=== PATIENT | male | born 1965 | race Caucasian/White ===

== ENCOUNTER 2023-12-15 23:56 | Emergency (ER) | payer BC, OTHER ==
--- OUTSIDE RECORDS SUMMARY | 2023-12-15 23:58 | XMS REPORT | Clinical Summary ---
Author Name Unknown Organization [facility] Address [address] [place] [address] Care Team Providers Care Actuarial Mathematician Name Role Phone Raheel Oglesby MD Primary Care Provider [phone] Jayme Mahan MD Unavailable Bjorn Trimble DDS Unavailable [phone] Karol Holliday DDS Unavailable [phone] Doc Goodman MD Unavailable [phone] Kalani Ayoub MD Unavailable [phone] Kamron King MD Unavailable Dotty Michael MD Unavailable Azra Jules MD Unavailable Allergies No known active allergies Medications Medication Sig Dispensed Refills Start Date End Date Status fluoride, sodium, (Denta 5000 Plus) 1.1 % dental creamIndications:Tons il carcinoma [place] teeth with cream and spit out as directed. (Do not eat, drink or rinse for 30 minutes). 51 g 12 12/31/2019 Active carBAMazepine (Tegretol XR) 100 mg 12 hr tabletIndications:Tri geminal neuralgia Take 1 tablet (100 mg) by mouth See Admin Instructions. 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 Cancer Staging:Clinical:Stage I(cT1, cN1, cM0, p16+) - Signed by Ingrid Mcguire PA on 02/10/2020 Pathologic:Stage Unknown(pT1, pNX, cM0, p16+) - Signed by Ingrid Mcguire PA on 02/10/2020 Encounters Date Type Department Care Team Description 08/27/2023 9:00 AM CDT - 08/27/2023 11:59 PM CDT Hospital Encounter [facility] [address] [place] [address] Main [facility], 4th [place] [address] Azra Jules MD Trigeminal neuralgia (Primary Dx); Primary squamous cell carcinoma of palatine tonsil Discharge Disposition: Home 08/27/2023 7:44 AM CDT - 08/27/2023 8:59 AM CDT Hospital Encounter [facility] [address] [place] [address] Aron Willams MD Primary squamous cell carcinoma of palatine tonsil Discharge Disposition: Home 08/27/2023 Documentation [facility] - Surgical Oncology [address] [place] [address], 10th Floor, [place] [address] Wallace Lowin K 08/27/2023 Travel 08/13/2023 Documentation [facility] [address] [place] [address], 10th Floor, [place] [address] Collier, Lamine K 07/19/2023 Documentation [facility] - Surgical Oncology [address] [place] [address], 10th Floor, [place] [address] Collier, Lamine K 05/01/2023 Orders Only [facility] [address] [place] [address] Felicity Goddard Primary squamous cell carcinoma of palatine tonsil (Primary Dx) 04/30/2023 8:38 AM COOK SHORT ORDER - 04/30/2023 11:59 PM COOK SHORT ORDER Hospital Encounter [facility] - Surgical Oncology [address] [place] [address], 10th Floor, [place] [address] Raheel Oglesby MD Primary squamous cell carcinoma of palatine tonsil Discharge Disposition: Home 04/30/2023 6:30 AM COOK SHORT ORDER Ancillary Procedure [facility] Out[facility] [address] [id number] Asia Barker PA Primary squamous cell carcinoma of palatine tonsil 04/30/2023 6:03 AM COOK SHORT ORDER - 04/30/2023 8:37 AM COOK SHORT ORDER Hospital Encounter [facility] [address] [place] [address], [place] [place] [address] Asia Barker PA Primary squamous cell carcinoma of palatine tonsil Discharge Disposition: Home 04/30/2023 Orders Only Neuroradiology [address] [place], [place] [id number] Yajaira Scherer PA 04/30/2023 Travel after 12/15/2022 Immunizations Name Administration Dates Next Due Pfizer SARS-CoV-2 Vaccination (Purple Cap) 10/04,09/13/2020 Surgical History Surgery Date Site/Laterality Comments HERNIA REPAIR 02/26/1993 - 02/25/1994 LIP RECONSTRUCTION 1967 - 02/26/1968 Right [place] OTOLARYNGOLOGIC EXAM UNDER GENERAL ANESTHESIA 08/21/2019 Mouth/Bilateral Procedure: OTOLARYNGOLOGIC EXAM UNDER ANESTHESIA; Surgeon: Raheel Oglesby MD; Location: MAIN OR; Service: HN - HEAD & NECK SURGERY [place] LARYNGOSCOPY DIRECT OPERATIVE W/BIOPSY 08/21/2019 Mouth/Bilateral Procedure: DIRECT OPERATIVE LARYNGOSCOPY WITH BIOPSY; Surgeon: Raheel Oglesby MD; Location: MAIN OR; Service: HN - HEAD & NECK SURGERY [place] TONSILLECTOMY PRIMARY/SECONDARY AGE 14/> 08/21/2019 Mouth/Bilateral Procedure: PRIMARY TONSILLECTOMY; Surgeon: Raheel Oglesby MD; Location: MAIN OR; Service: HN - HEAD & NECK SURGERY [place] UNLISTED PROCEDURE DENTOALVEOLAR STRUCTURES 08/21/2019 Mouth/Bilateral Procedure: DENTAL EXTRACTION(S); Surgeon: Bjorn Trimble DDS; Location: MAIN OR; Service: ORAL ONCOLOGY & MAXILLOFACIAL PROSTHODONTICS [place] ALVEOLOPLASTY EACH QUADRANT SPECIFY 08/21/2019 Mouth/Bilateral Procedure: ALVEOLOPLASTY; Surgeon: Bjorn Trimble DDS; Location: MAIN OR; Service: ORAL ONCOLOGY & MAXILLOFACIAL PROSTHODONTICS [place] CERVICAL LYMPHADEC MODIFIED RADICAL NECK DSJ 02/03/2020 Left Procedure: LEVEL II-IV NECK DISSECTION; Surgeon: Raheel Oglesby MD; Location: MAIN OR; Service: HN - HEAD & NECK SURGERY [place] EXCISION TUMOR SOFT TIS BACK/FLANK SUBQ 3 CM/> 07/27/2022 Left Procedure: EXCISION OF TUMOR OF SOFT TISSUE OF BACK OR FLANK; Surgeon: Dotty Michael MD; Location: MAIN OR; Service: SURG ONC - GENERAL Medical History Medical History Date Comments 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 Family History Medical History Relation Name Comments Leukemia Maternal Uncle Relation Name Status Comments Father Maternal Uncle Social History Tobacco Use Types Packs/Day Years Used Date Smoking Tobacco: Former Cigarettes 1 20 0 02/26/1999 - 02/26/2019 Smokeless Tobacco: Former Quit: 02/26/1999 Tobacco Cessation:Ready to Q uit: Yes; Counseling Given: Yes Alcohol Use Standard Drinks/Week Comments Not Currently 0 (1 standard drink = 0.6 oz pur e alcohol) stopped drinking 15 yrs ago Sex and Gender Information Value Date Recorded Sex Assigned at Male 08/05/2019 2:32 PM CDT Gender Identity Male 08/05/2019 2:32 PM CDT Sexual Orientation Straight 08/05/2019 2: 32 PM CDT Job Start Date Occupation Industry Not on file Not on file Not on file Obstetrics History Last Filed Vital Signs Vital Sign Reading Time Taken Comments Blood Pressure 151/90 08/27/2023 9:46 AM CDT Pulse 59 08/27/2023 9:46 AM CDT Temperature 36.6 C (97.8 F) 08/27/2023 9:46 AM CD T Respiratory Rate 18 08/27/2023 9:46 AM CDT Oxygen Saturation 100% 08/27/2023 9:46 AM CDT Inhaled Oxygen Concentration - - Weight 88.5 kg (195 lb) 08/27/2023 9:46 AM CDT Height - - Body Mass Index 27.3 05/01/2022 10:41 AM COOK SHORT ORDER Plan of Treatment Upcoming Encounters Date Type Department Care Team (Late st Contact Info) Description 04/30/2024 7:00 AM COOK SHORT ORDER Appointment Diagnostic [facility] Center [address] [place] [phone] Raheel Oglesby MD [address] [place] [phone] [email or web address] 04/30/2024 7:30 AM COOK SHORT ORDER Ancillary Procedure Diagnostic Center [address] [place] [address], 2nd [place] [address] Raheel Oglesby MD [address] [place] [phone] [email or web address] 04/30/2024 7:45 AM COOK SHORT ORDER Ancillary Procedure CT Imaging [address] [place] [address], 7th [place] [address] Raheel Oglesby MD [address] [place] [phone] [email or web address] 04/30/2024 10:00 AM COOK SHORT ORDER Consult Cancer Prevention Center - Survivorship, Head/Neck [address] [place] [address], [address]th [place] [address] Raheel Oglesby MD [address] [place] [phone] [email or web address] Health Maintenance Due Date Last Done Comments COVID-19 Vaccine (2023-2 5 season) 2023 10/04/2020, 09/13/2020 Influenza Vaccine (#1) 2023 Pneumococcal Vaccine: Pediatrics (0 to 5 Years) and At-Risk Patients (6 to 64 Years) Aged Out No longer eligible b ased on patient's age to complete this topic Procedures Procedure Name Priority Date/Time Associated Diagnosis Comments MRI HEAD/NECK SIMULATION W WO CONTRAST (RO) Routine 08/27/2023 8:53 AM CDT Primary squamous cell carcinoma of palatine tonsil POC CREATININE Routine 08/27/2023 8:[address] SOFT TISSUE NECK W CONTRAST Routine 04/30/2023 8:27 AM COOK SHORT ORDER Primary squamous cell carcinoma of palatine tonsil FREE THYROXINE Routine 04/30/2023 6:26 AM COOK SHORT ORDER Primary squamous cell carcinoma of palatine tonsil THYROID STIMULATING HORMONE Routine 04/30/2023 6:26 AM COOK SHORT ORDER Primary squamous cell carcinoma of palatine tonsil CREATININE Routine 04/30/2023 6:26 AM COOK SHORT ORDER Primary squamous cell carcinoma of palatine tonsil BLOOD UREA NITROGEN Routine 04/30/2023 6 :26 AM COOK SHORT ORDER Primary squamous cell carcinoma of palatine tonsil after 12/15/2022 Results * MRI Head/Neck Simulation with and without Contrast (08/27/2023 8:53 AM CDT) Narrative Systemgenerated, Documentation - 08/27/2023 8:53 AM CDT This procedure requires no interpretation from the radiologist. Aron Willams MD IMG RO MRI [facility] * POC Creatinine (08/27/2023 8:04 AM CDT) POC Creatinine 1.1 0.6 - 1.3 mg/dL 08/27/2023 8:07 AM CDT [facility] Comment:Medications, especia lly hydroxyurea or supplements, such as ascorbate, can interfere with test results causing a falsely and significantly higher result than expected. If a problem is suspected with a patient's result, a sample should be sent to the laboratory for confirmatory testing. POC eGFR 79 >=60 mL/min/1.7 3 sq. m 08/27/2023 8:07 AM CDT [facility] Comment: The eGFRcr is calculated with the 2020 CKD-EPI creatinine equation using creatinine, patient's age, and sex for adults 18 years of age and older. Other factors, especially muscle mass, may affect accuracy and need to be considered. According to the Kidney Disease: Improving Global Outcomes (KDIGO) CKD Work Group 2012 Clinical Practice Guideline, chronic kidney disease (CKD) is defined as the abnormalities of kidney structure or function, present for more than 3 months, with implications for health. CKD should be classified by cause, GFR category, and albuminuria category. KDIGO guidelines provide the following GFR categories. Stage / Description / GFR mL/min/1.73 m2: G1* / Normal or high / >= 90 G2* / Mildly decreased / 60-89 G3a / Mildly to moderately decreased / 45-59 G3b / Moderately to severely decreased / 30-44 G4 / Severely decreased / 15-29 G5 / Kidney failure / <15 *In the absence of evidence of kidney damage, neither G1 nor G2 fulfill criteria for CKD. Blood 08/27/2023 8:04 AM CDT 08/27/2023 8:07 AM CDT Narrative [facility] - 08/27/2023 8:07 AM CDT Method description: The i-STAT is an analyzer used for in vitro quantification of various analytes in whole blood. The device uses a single disposable cartridge which contains microfabricated sensors, a calibration solution, fluidics system, and a waste chamber. Each test cartridge contains chemically sensitive biosensors on a silicon chip that are configured to perform specific tests. The microfabricated sensors measure analyte concentration by an electrochemical assay. Aron Willams MD POCT ORDERABLES - Lucero [facility] [address] [place], [place] [address], [place] * CT Soft Tissue Neck with Contrast (04/30/2023 8:27 AM COOK SHORT ORDER) Anatomical Region Laterality Modality Neck Computed Tomogra phy 04/30/2023 8:43 AM COOK SHORT ORDER Impressions 04/30/2023 8:49 AM COOK SHORT ORDER No local or michael recurrence. NIRADS SCORE: 1. Primary: NIRADS 1: Expected post-treatment changes without evidence of recurrence, routine surveillance 2. Nodes: NIRADS 1: No evidence of recurrence; routine surveillance FOOTNOTE: NI-RADS (Neck Imaging Reporting & Data System) is a standardized reporting system for follow-up of treated head and neck cancers. For more information: [email or web address].acr.org/-/[email or web address]-[email or web address]-Surveillance-Lege [email or web address] t ACTIONABLE ITEMS/RECOMMENDATIONS*: None. Narrative 04/30/2023 8:49 AM COOK SHORT ORDER FULL RESULT: Examination: CT SOFT TISSUE NECK W CONTRAST on 04/30/2023 8:27 AM. 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 TECHNIQUE: CT neck with IV contrast was performed. FINDINGS: Primary Site: No new worrisome enhancement about the oropharynx is identified Post-treatment changes: Expected post treatment changes are noted. There is no evidence of osteoradionecrosis. Lymph Nodes: No cervical adenopathy Distant Sites: No metastasis is seen in the visualized brain. No bony metastasis is seen. No metastasis is seen in the lung apices. Other: Small periapical lucency seen surrounding the left maxillary 1st molar Procedure Note Heaven Ray MD - 04/30/2023 FULL RESULT: Examination: CT SOFT TISSUE NECK W CONTRAST on 04/30/2023 8:27 AM. CLINICAL HISTORY: Squamous cell carcinoma of the left tonsil status postradiation and left neck dissection INDICATION: Cancer surveillance, SCC oropharynx s/p XRT COMPARISON: CT 09/27/2022. TECHNIQUE: CT neck with IV contrast was performed. FINDINGS: Primary Site: No new worrisome enhancement about the oropharynx is identified Post-treatment changes: Expected post treatment changes are noted. There is no evidence of osteoradionecrosis. Lymph Nodes: No cervical adenopathy Distant Sites: No metastasis is seen in the visualized brain. No bony metastasis is seen. No metastasis is seen in the lung apices. Other: Small periapical lucency seen surrounding the left maxillary 1stmolar IMPRESSION: No local or michael recurrence. NIRADS SCORE: 1. Primary: NIRADS 1: Expected post-treatment changes without evidence ofrecurrence, routine surveillance 2. Nodes: NIRADS 1: No evidence of recurrence; routine surveillance FOOTNOTE: NI-RADS (Neck Imaging Reporting & Data System) is a standardized reportingsystem for follow-up of treated head and neck cancers. For more information:[email or web address]://www.acr.org/-/media/[email or web address]/Files/RADS/NI-RADS/GXTQ-vs-PQJ-Surve illan ce-Legend.txt ACTIONABLE ITEMS/RECOMMENDATIONS*: None. Asia SIMS IMG CT ORDERABLES * BUN (04/30/2023 6:26 AM COOK SHORT ORDER) BUN 18 6 - 23 mg/dL 04/30/2023 7:42 AM COOK SHORT ORDER [facility] Blood Venipuncture / Unknown 04/30/2023 6:26 AM COOK SHORT ORDER 04/30/2023 6:32 AM COOK SHORT ORDER Asia SIMS LAB BLOOD ORDERABLES [facility] Unless otherwise noted, all lab tests performed by: Division of Pathology and Laboratory Medicine [address] [place] [id number] * TSH (04/30/2023 6:26 AM COOK SHORT ORDER) Thyroid Stimulating Hormone 1.05 0.27 - 4.20 mcunit/mL 04/30/2023 7:42 AM COOK SHORT ORDER [facility] Blood Venipuncture / Unknown 04/30/2023 6:26 AM COOK SHORT ORDER 04/30/2023 6:32 AM COOK SHORT ORDER Asia M Lucero SIMS LAB BLOOD ORDERABLES Performing Organization Address City/[facility]/ZIP Co de Phone Number [facility] Unless otherwise noted, all lab tests performed by: Division of Pathology and Laboratory Medicine [address] [place] [phone] * (ABNORMAL) Free T4 (04/30/2023 6:26 AM COOK SHORT ORDER) T4 (Thyroxine) Free 0.91(L) 0.93 - 1.70 ng/dL 04/30/2023 7:42 AM COOK SHORT ORDER [facility] Blood Venipuncture / Unknown 04/30/2023 6:26 AM COOK SHORT ORDER 04/30/2023 6:32 AM COOK SHORT ORDER Asia M Lucero SIMS LAB BLOOD ORDERABLES Performing Organization Address [facility] de Phone Number [facility] Unless otherwise noted, all lab tests performed by: Division of Pathology and Laboratory Medicine [address] [place] [phone] * (ABNORMAL) Creatinine (04/30/2023 6:26 AM COOK SHORT ORDER) Creatinine 1.22(H) 0.67 - 1.17 mg/dL 04/30/2023 7:42 AM COOK SHORT ORDER [facility] eGFR 70 >=60 mL/min/1. 73 sq. m 04/30/2023 7:42 AM [facility] Comment: The eGFRcr is calculated with the 2020 CKD-EPI creatinine equation using creatinine, patient's age, and sex for adults 18 years of age and older. Other factors, especially muscle mass, may affect accuracy and need to be considered. According to the Kidney Disease: Improving Global Outcomes (KDIGO) CKD Work Group 2012 Clinical Practice Guideline, chronic kidney disease (CKD) is defined as the abnormalities of kidney structure or function, present for more than 3 months, with implications for health. CKD should be classified by cause, GFR category, and albuminuria category. KDIGO guidelines provide the following GFR categories. Stage / Description / GFR mL/min/1.73 m2: G1* / Normal or high / >= 90 G2* / Mildly decreased / 60-89 G3a / Mildly to moderately decreased / 45-59 G3b / Moderately to severely decreased / 30-44 G4 / Severely decreased / 15-29 G5 / Kidney failure / <15 *In the absence of evidence of kidney damage, neither G1 nor G2 fulfill criteria for CKD. Blood Venipuncture / Unknown 04/30/2023 6:26 AM COOK SHORT ORDER 04/30/2023 6:32 AM COOK SHORT ORDER Asia SIMS LAB BLOOD ORDERABLES [facility] Unless otherwise noted, all lab tests performed by: Division of Pathology and Laboratory Medicine [address] [place] [address] after 12/15/2022 Advance Directives * Full Code (Latest Code Status on File) Date Activated Date Inactivated Comments 07/27/2022 4:49 PM 07/27/2022 7:56 PM * Full Code Date Activated Date Inactivated Comments 02/03/2020 1:34 PM 02/04/2020 12:39 PM Care Teams Actuarial Mathematician Relationship Specialty Start Date End Date Raheel Oglesby MD [address] [place] [phone] [email or web address] PCP - General Head and Neck Surgery 08/11/19 Jayme Mahan MD [address] [place] [phone] [email or web address] Consulting Physician Radiation Oncology 10/06/19 Bjorn Trimble DDS [address] [place] [phone] [email or web address] Consulting Physician Dental Oncology 08/13/19 Karol Holliday DDS [address] [place] [phone] [email or web address] Consulting Physician Dental Oncology 09/15/19 Doc Goodman MD [address] [place] [phone] [email or web address] [email or web address] Physician Head and Neck Surgery 05/01/22 Kalani Ayoub MD [address] [place] [phone] [email or web address] Consulting Physician Thoracic Medicine 08/13/19 Kamron King MD [address] [place] [phone] [email or web address] Consulting Physician Integrative Medicine 05/03/22 Dotty Michael MD [address] [place] [phone] [email or web address] Consulting Physician Surgical Oncology 06/16/22 Azra Jules MD [address] [place] [address] [email or web address] Consulting Physician Pain Management 08/27/23
[2023-12-16] MEDS ORDERED: LIDOCAINE 1% 20 ML MDV ONE (00:48)
[2023-12-16] MEDS ORDERED: TDAP (DIPHTH,PERTUSS(ACELL),TET VAC) 0.5 ML VIAL IMVAC ONE (00:48)
--- NOTE | 2023-12-16 01:32 | EDPHYS ---
Physician Documentation [facility] Name: Sandoval Brunner Age: 58 yrs Sex: Male : 1965 Arrival Date: 12/15/2023 Time: 23:56 Bed 13 Private MD: ED Physician Amanuel Mark HPI: 12/15 00:01 This 58 yrs old Male presents to ER via Unassigned with complaints of sp4 Laceration To Arm. 21:56 58-year-old male presents with complaint of acute laceration to the skin of the left sp4 elbow. Patient states he was working with washing machine when metal lacerated his skin. . Historical: - Allergies: 00:04 No Known Allergies; vc1 - PMHx: 00:04 squamous cell carcinoma; vc1 - PSHx: 00:04 None; vc1 - Immunization history:: Last tetanus immunization: > 10 years ago. - Infectious Disease History:: Denies. - Social history:: Smoking status: Reported history of juuling and/or vaping. - Family history:: not pertinent. ROS: 21:56 Constitutional: Negative for fever, chills, and weight loss, positive left elbow sp4 laceration 21:56 All other systems are negative, Exam: 21:56 Constitutional: This is a well developed, well nourished patient who is awake, alert, sp4 and in no acute distress. Head/Face: Normocephalic, atraumatic. Eyes: Pupils equal round and reactive to light, extra-ocular motions intact. Lids and lashes normal. Conjunctiva and sclera are not injected. Cornea within normal limits. Periorbital areas with no swelling, redness, or edema. ENT: Nares patent. No nasal discharge, no septal abnormalities noted. Tympanic membranes are normal and external auditory canals are clear. Oropharynx with no redness, swelling, or masses, exudates, or evidence of obstruction, uvula midline. Mucous membranes moist. Neck: Trachea midline, no thyromegaly or masses palpated, and no cervical lymphadenopathy. Supple, full range of motion without nuchal rigidity, or vertebral point tenderness. Chest/axilla: Normal chest wall appearance and motion. Nontender with no deformity. No lesions are appreciated. Cardiovascular: Regular rate and rhythm with a normal S1 and S2. No gallops, murmurs, or rubs. Normal PMI, no JVD. No pulse deficits. Respiratory: Lungs have equal breath sounds bilaterally, clear to auscultation and percussion. No rales, rhonchi or wheezes noted. No increased work of breathing, no retractions or nasal flaring. Abdomen/GI: Soft, with normal bowel sounds. No distension or tympany. No guarding or rebound. No evidence of tenderness throughout. Back: No spinal tenderness. No costovertebral tenderness. Skin: Warm, dry with normal turgor. Normal color with no rashes, no lesions, and no evidence of cellulitis. Positive skin of the left elbow laceration just superior to olecranon process. Laceration and avulsed some fascia MS/ Extremity: Pulses equal, no cyanosis. Neurovascular intact. Full, normal range of motion. Positive for laceration posterior left elbow skin just above olecranon process transverse orientation Neuro: Awake and alert, GCS 15, oriented to person, place, time, and situation. Cranial nerves II-XII grossly intact. Motor strength 5/5 in all extremities. Sensory grossly intact. Psych: Awake, alert, with orientation to person, place and time. Behavior, mood, and affect are within normal limits Vital Signs: 00:01 Weight 88.45 kg; Height 5 ft. 11 in. ; Pain 0/10; vc1 00:06 BP 137 / 95; Pulse 75; Resp 14; Temp 98.6; Pulse Ox 95% ; vc1 01:29 BP 131 / 90; Pulse 78; Resp 16; Pulse Ox 100% ; dd2 00:01 Body Mass Index 27.20 (88.45 kg, 180.34 cm) vc1 00:01 Pain Scale: Adult vc1 Marialuisa Coma Score: 01:23 Eye Response: spontaneous(4). Motor Response: obeys commands(6). Verbal Response: dd2 oriented(5). Total: 15. 21:56 Eye Response: spontaneous(4). Motor Response: obeys commands(6). Verbal Response: sp4 oriented(5). Total: 15. Laceration: 01:28 Wound Repair of 3cm ( 1.2in ) fascia involved laceration to left elbow - left elbow sp4 transverse laceration . Linear shaped.. Hemostasis noted.. Distal neuro/vascular/tendon intact. Anesthesia: Wound infiltrated with 10 mls of 1% lidocaine. Wound prep: Moderate cleansing by me, Copious irrigation. Skin closed with 6 4-0 Silk using vertical mattress sutures and sterile technique. Dressed with 4x4's, Kerlix, pressure dressing. Patient tolerated well. MDM: 00:38 Medical Screening Exam initiated sp4 01:28 Differential diagnosis: superficial laceration, tendon injury, vascular injury. Data sp4 reviewed: vital signs, nurses notes. 21:56 Consideration of Admission/Observation Escalation of care including sp4 admission/observation considered. ED course: Laceration was fixed. Patient stable for discharge home.. 12/15 00:39 Order name: Dressing - Wound; Complete Time: :07 sp4 12/15 00:39 Order name: Gloves, Sterile; Complete Time: 01:07 sp4 12/15 00:39 Order name: Setup Suture Tray; Complete Time: 01:07 sp4 Administered Medications: 01:07 Drug: Boostrix Tdap IM 0.5 ml IM once; as a single dose Route: IM; Site: right deltoid; dd2 01:36 Follow up: Response: No adverse reaction dd2 01:23 Drug: Lidocaine Infiltration (1 %) 20 ml 20 ml Infiltration once; to bedside {Note: dd2 administered by Dr. Mark.} Volume: 20 ml; Route: Infiltration; Site: wound; 01:36 Follow up: Response: No adverse reaction dd2 Disposition Summary: 12/16/23 01:31 Discharge Ordered Notes: We recommend suture removal after 20 days Location: Home sp4 Problem: new sp4 Symptoms: have improved sp4 Condition: Stable sp4 Diagnosis - Laceration without foreign body of left elbow sp4 Followup: sp4 - With: Private Physician - When: Suture removal after 20 days - Reason: Recheck today's complaints Discharge Instructions: - Discharge Summary Sheet sp4 - Laceration Care, Adult, [place]-Ew[facility] sp4 Forms: - Patient Portal Instructions sp4 Signatures: Elizabeth Dennis RN RN 1 Amanuel Mark MD MD sp4 GABBY CERDA RN RN dd2 Corrections: (The following items were deleted from the chart) 01:30 01:28 Wound Repair of 3cm ( 1.2in ) subcutaneous laceration to left elbow - left elbow sp4 transverse laceration . Linear shaped.. Hemostasis noted.. Distal neuro/vascular/tendon intact. Anesthesia: Wound infiltrated with 10 mls of 1% lidocaine. Wound prep: Moderate cleansing by me, Copious irrigation. Skin closed with 6 4-0 Silk using vertical mattress sutures and sterile technique. Dressed with 4x4's, Kerlix, pressure dressing. Patient tolerated well. sp4
--- NOTE | 2023-12-16 01:32 | ER ---
Nurse's Notes [facility] Name: Sandoval Brunner Age: 58 yrs Sex: Male : 1965 Arrival Date: 12/15/2023 Time: 23:56 Bed 13 Private MD: Diagnosis: Laceration without foreign body of left elbow Presentation: 12/15 00:01 Chief complaint: Patient states: working on the washer and cut my left arm. Coronavirus vc1 screen: Client denies travel out of the [place] in the last 14 days. At this time, the client does not indicate any symptoms associated with coronavirus-19. Ebola Screen: Patient negative for fever greater than or equal to 101.5 degrees Fahrenheit, and additional compatible Ebola Virus Disease symptoms Patient denies exposure to infectious person. Patient denies travel to an Ebola-affected area in the 21 days before illness onset. No symptoms or risks identified at this time. Complicating Factors: There are no complicating factors for this patient. Initial Sepsis Screen: Does the patient meet any 2 criteria? No. Patient's initial sepsis screen is negative. Does the patient have a suspected source of infection? No. Patient's initial sepsis screen is negative. Risk Assessment: Do you want to hurt yourself or someone else? Patient reports no desire to harm self or others. Onset of symptoms was December 16, 2023. 00:01 Method Of Arrival: Ambulatory vc1 00:01 Acuity: MELANIA 4 vc1 Historical: - Allergies: 00:04 No Known Allergies; vc1 - PMHx: 00:04 squamous cell carcinoma; vc1 - PSHx: 00:04 None; vc1 - Immunization history:: Last tetanus immunization: > 10 years ago. - Infectious Disease History:: Denies. - Social history:: Smoking status: Reported history of juuling and/or vaping. - Family history:: not pertinent. Screenin:06 Abuse screen: Denies threats or abuse. Nutritional screening: No deficits noted. vc1 Tuberculosis screening: No symptoms or risk factors identified. 01:[address] [facility] ED Fall Risk Assessment (Adult) History of falling in the last 3 months, dd2 including since admission No falls in past 3 months (0 pts) Confusion or Disorientation No (0 pts) Intoxicated or Sedated No (0 pts) Impaired Gait No (0 pts) Mobility Assist Device Used No (0 pt) Altered Elimination No (0 pt) Score/Fall Risk Level 0 - 2 = Low Risk Oriented to surroundings, Maintained a safe environment, Educated pt \T\ family on fall prevention, incl call for assistance when getting out of bed, Assessed \T\ reinforced patient's understanding of fall precautions, Hourly rounding (assess needs \T\ fall precautionary measures) done. Assessment: 01:23 General: Appears in no apparent distress. Behavior is calm, cooperative, appropriate dd2 for age. Pain: Denies pain. Neuro: No deficits noted. Cardiovascular: No deficits noted. Respiratory: No deficits noted. GI: No deficits noted. No signs and/or symptoms were reported involving the gastrointestinal system. : No deficits noted. No signs and/or symptoms were reported regarding the genitourinary system. EENT: No deficits noted. No signs and/or symptoms were reported regarding the EENT system. Derm: Wound noted left tricep Wound is lacerattion. Musculoskeletal: Circulation, motion, and sensation intact. Range of motion: intact in all extremities. Injury Description: Laceration sustained to left tricep is clean, 2.6 to 7.5 cm long, bleeding moderately, was sustained 2-4 hours ago. is bleeding moderately. Vital Signs: 00:01 Weight 88.45 kg; Height 5 ft. 11 in. ; Pain 0/10; vc1 00:06 BP 137 / 95; Pulse 75; Resp 14; Temp 98.6; Pulse Ox 95% ; vc1 01:29 BP 131 / 90; Pulse 78; Resp 16; Pulse Ox 100% ; dd2 00:01 Body Mass Index 27.20 (88.45 kg, 180.34 cm) vc1 00:01 Pain Scale: Adult vc1 Marialuisa Coma Score: 01:23 Eye Response: spontaneous(4). Motor Response: obeys commands(6). Verbal Response: dd2 oriented(5). Total: 15. 21:56 Eye Response: spontaneous(4). Motor Response: obeys commands(6). Verbal Response: sp4 oriented(5). Total: 15. ED Course: 12/14 23:58 Patient arrived in ED. [id number] 12/15 00:00 GABBY CERDA RN is Primary Nurse. dd2 00:01 Amanuel Mark MD is Attending Physician. sp4 00:04 Triage completed. vc1 00:05 Arm band placed on right wrist. vc1 01:23 Patient has correct armband on for positive identification. Bed in low position. Call dd2 light in reach. Provided Education on: boostrix, medications, wound care. Client placed on continuous cardiac and pulse oximetry monitoring. NIBP monitoring applied. Door closed. Noise minimized. Verbal reassurance given. 01:23 Assist provider with laceration repair on left tricep that was between 2.6 to 7.5 cm dd2 using sutures. Set up tray. Performed by Amanuel Mark MD Dressed with 4X4s, Kerlix, Patient tolerated well. Patient did not have IV access during this emergency room visit. Administered Medications: 01:07 Drug: Boostrix Tdap IM 0.5 ml IM once; as a single dose Route: IM; Site: right deltoid; dd2 01:36 Follow up: Response: No adverse reaction dd2 01:23 Drug: Lidocaine Infiltration (1 %) 20 ml 20 ml Infiltration once; to bedside {Note: dd2 administered by Dr. Mark.} Volume: 20 ml; Route: Infiltration; Site: wound; 01:36 Follow up: Response: No adverse reaction dd2 Medication: 01:23 Vaccine Information Statement (VIS) provided today. Questions and/or concerns dd2 addressed. VIS edition date: October 01, 2020. Outcome: 01:31 Discharge ordered by . sp4 01:35 Discharged to home ambulatory, dd2 01:35 Condition: stable 01:35 Discharge instructions given to patient, Instructed on discharge instructions, follow up and referral plans. Demonstrated understanding of instructions, follow-up care, 01:36 Patient left the ED. dd2 Signatures: Nazanin Roe [email or web address] Elizabeth Dennis RN RN vc1 Amanuel Mark MD MD sp4 GABBY CERDA RN RN dd2
[2023-12-16 08:03] VITALS: TEMP 98.6
[2023-12-16 08:04] VITALS: BP 131/90; O2SAT 100
== END 2023-12-16 01:36 | disposition home or self-care (01) ==
LOC: ER 23:56
DX: S51.012A Laceration without foreign body of left elbow, initial encounter (principal); W26.8XXA Contact with other sharp object(s), not elsewhere classified, initial encounter
CPT/HCPCS: 96372; 99284; 12032; J2001